=== PATIENT | female | born 1970 | race Caucasian/White ===

== ENCOUNTER 2017-09-09 06:45 | Day surgery (SDC) | payer OTHER ==
[~2017-09-09 06:45] MED LIST: BACL10 PO; CYCL10 PO; GABA300 PO; HYDACE5; HYDACE5 PO; IBUP800; NAPR500 PO; PARO20 PO; TRAZ50
== END 2017-09-09 11:33 | disposition home or self-care (01) ==
LOC: ORSCMMR 06:45
PROVIDERS: Surgery
PROC: 0HBU0ZX Excision of Left Breast, Open Approach, Diagnostic (ICD-10-PCS; principal; 2017-09-09 08:15)
DX: N60.12 Diffuse cystic mastopathy of left breast (principal); N63.21 Unspecified lump in the left breast, upper outer quadrant; N63.23 Unspecified lump in the left breast, lower outer quadrant; F17.210 Nicotine dependence, cigarettes, uncomplicated; Z79.899 Other long term (current) drug therapy
CPT/HCPCS: 88305; J1100; J1885; J2250; J2405; J7120

== ENCOUNTER → 2018-09-07 | Outpatient (CLI) | payer OTHER ==
[2018-09-08 14:07] LABS: HPV 16 Negative (Negative); HPV 18 Negative (Negative); HPV OTHER HR TYPES Negative (Negative)
== END ==
LOC: PLD 11:46 → LAB SHORT 11:46
PROVIDERS: Registered Nurse Community Health
DX: Z12.4 Encounter for screening for malignant neoplasm of cervix (principal); N89.8 Other specified noninflammatory disorders of vagina
CPT/HCPCS: 87070; 87205; 87624; 88305; G0123

== ENCOUNTER 2019-05-02 06:42 | Inpatient (IN) | payer OTHER ==
[~2019-05-02] VITALS: Ht 162.6 cm; Wt 55.1 kg
[2019-05-02] MEDS ORDERED: Bactrim Ds Tab1 EACH PO (07:33)
[2019-05-02] MEDS ORDERED: IBUP400 (07:34)
[2019-05-02 08:45] LABS: BASOPHILS ABSOLUTE AUTO 0.08 K/mm3 (0.00-0.23); BASOPHILS PERCENT AUTO 1 % (0-2); EOSINOPHILS ABSOLUTE AUTO 0.14 K/mm3 (0.00-0.68); EOSINOPHILS PERCENT AUTO 1 % (0-6); Hematocrit 36.9 % (33.0-51.0); Hemoglobin 12.2 g/dL (11.5-16.0); IMMATURE GRAN ABSOLUTE AUTO 0.06 K/mm3 (0.00-0.10); IMMATURE GRAN PERCENT AUTO 0 % (0-1); LYMPHOCYTES ABSOLUTE AUTO 1.78 K/mm3 (0.84-5.20); LYMPHOCYTES PERCENT AUTO 13 % (21-46); MONOCYTES ABSOLUTE AUTO 1.74 K/mm3 (0.16-1.47); MONOCYTES PERCENT AUTO 12 % (4-13); Mean Corpuscular HGB 29.9 pg (26.0-34.0); Mean Corpuscular HGB Conc 33.1 g/dL (31.5-36.5); Mean Corpuscular Volume 90 fL (80-100); Mean Platelet Volume 11.3 fL (9.1-12.4); NEUTROPHILS ABSOLUTE AUTO 10.38 K/mm3 (1.96-9.15); NEUTROPHILS PERCENT AUTO 73 % (41-73); Platelet Count 186 K/mm3 (150-400); RDW Coefficient Variation 12.7 % (11.7-14.2); Red Blood Cell Count 4.08 M/mm3 (3.80-5.20); White Blood Cell Count 14.18 K/mm3 (4.00-11.30)
[2019-05-02 09:04] LABS: Anion Gap 8 mmol/L (6-16); Blood Urea Nitrogen 15 mg/dL (8-24); Bun/Creatinine Ratio 19.4 (12.0-20.0); CO2, Blood 23 mmol/L (21-32); Calcium, Blood 8.4 mg/dL (8.5-10.1); Chloride, Blood 107 mmol/L (98-108); Creatinine, Blood 0.77 mg/dL (0.40-1.00); Glomerular Filtration Rate >60 (60-); Glucose, Blood 108 mg/dL (70-99); Potassium, Blood 3.6 mmol/L (3.5-5.5); Sodium, Blood 138 mmol/L (136-145)
[2019-05-02 10:59] LABS: International Normalized Ratio 1.04
[2019-05-02] MEDS ORDERED: MUPIROCIN15 GM TOP (13:02)
--- NOTE | 2019-05-02 15:34 | NUR ---
NEW ADMISSION. PER CLINICAL CORRDINATOR AND INSPECTOR AND UNLOADER, NOT TO ENTER ROOM TO GET ADMIT VITALS AT THIS TIME
--- NOTE | 2019-05-02 16:10 | NUR ---
PT REFUSING TO LISTEN TO INSTRUCTIONS. REFUSING TO WEAR GOWN. REQUESTING A COMPLAINT FORM. CHARGE NURSE NOTIFIED.
--- NOTE | 2019-05-02 16:12 | NUR ---
PT REFUSING TO ANSWER QUESTIONS, REFUSING TO WEAR HOSPITAL GOWN.
--- NOTE | 2019-05-02 16:40 | NUR ---
PT REQUESTING TO LEAVE AMA. FORMS SIGNED DR. SHERMAN AND JAN ESPARZA RN INFORMED.
--- NOTE | 2019-05-02 16:41 | NUR ---
PT EXPLAINED RISKS TO LEAVING VERBALIZED UNDERSTANDING. ENCOURAGED TO RETURN IF SYMPTOMS WORSEN.
== END 2019-05-02 16:45 | disposition left against medical advice (07) | DRG 872 ==
LOC: ER 06:42 → ERHOLD 11:41 → MEDS 15:00
PROVIDERS: Emergency Medicine; Nurse Practitioner Acute Care; ADMIT Internal Medicine
DX: A41.9 Sepsis, unspecified organism (principal); L03.115 Cellulitis of right lower limb; M50.30 Other cervical disc degeneration, unspecified cervical region; F17.210 Nicotine dependence, cigarettes, uncomplicated; Z88.0 Allergy status to penicillin; Z88.2 Allergy status to sulfonamides; Z53.29 Procedure and treatment not carried out because of patient's decision for other reasons
CPT/HCPCS: 36415; 73701; 80048; 83605; 85025; 85610; 85651; 86140; 87040; 96361; 96365-59; 96375-59; 99285-25; J0696; J2405; J3370; J7030; Q9967

== ENCOUNTER 2019-05-04 18:58 | Inpatient (IN) | payer OTHER ==
[~2019-05-04] VITALS: Ht 162.6 cm; Wt 59.6 kg
[~2019-05-04 18:58] MED LIST changes: +Bactrim Ds Tab1 EACH PO; +IBUP400; +MUPIROCIN15 GM TOP
[2019-05-04 20:10] LABS: BASOPHILS PERCENT AUTO 1 % (0-2); EOSINOPHILS ABSOLUTE AUTO 0.49 K/mm3 (0.00-0.68); EOSINOPHILS PERCENT AUTO 4 % (0-6); Hemoglobin 11.9 g/dL (11.5-16.0); IMMATURE GRAN ABSOLUTE AUTO 0.05 K/mm3 (0.00-0.10); IMMATURE GRAN PERCENT AUTO 0 % (0-1); LYMPHOCYTES ABSOLUTE AUTO 2.22 K/mm3 (0.84-5.20); LYMPHOCYTES PERCENT AUTO 18 % (21-46); MONOCYTES ABSOLUTE AUTO 1.37 K/mm3 (0.16-1.47); MONOCYTES PERCENT AUTO 11 % (4-13); Mean Corpuscular HGB 30.3 pg (26.0-34.0); Mean Corpuscular HGB Conc 32.2 g/dL (31.5-36.5); Mean Platelet Volume 10.3 fL (9.1-12.4); NEUTROPHILS ABSOLUTE AUTO 7.81 K/mm3 (1.96-9.15); NEUTROPHILS PERCENT AUTO 65 % (41-73); Platelet Count 243 K/mm3 (150-400); RDW Coefficient Variation 12.5 % (11.7-14.2); RDW Standard Deviation 43.9 fL (35.1-46.3); Red Blood Cell Count 3.93 M/mm3 (3.80-5.20); White Blood Cell Count 12.04 K/mm3 (4.00-11.30)
[2019-05-04 20:12] LABS: Mean Corpuscular Volume 94 fL (80-100)
[2019-05-04 20:28] LABS: Alanine Aminotransfer (ALT/SGP 57 U/L (12-78); Albumin, Blood 3.3 g/dL (3.4-5.0); Albumin/Globulin Ratio 0.8 (0.8-1.8); Alk Phos 108 U/L (50-136); Anion Gap 7 mmol/L (6-16); Aspartate Aminotrans (AST/SGOT 50 U/L (12-37); Bilirubin, Total 0.3 mg/dL (0.1-1.0); Blood Urea Nitrogen 17 mg/dL (8-24); Bun/Creatinine Ratio 21.5 (12.0-20.0); CO2, Blood 26 mmol/L (21-32); Calcium, Blood 8.9 mg/dL (8.5-10.1); Chloride, Blood 108 mmol/L (98-108); Creatinine, Blood 0.79 mg/dL (0.40-1.00); Globulin, Blood 4.2 g/dL (2.2-4.0); Glomerular Filtration Rate >60 (60-); Glucose, Blood 71 mg/dL (70-99); Potassium, Blood 4.1 mmol/L (3.5-5.5); Sodium, Blood 141 mmol/L (136-145); Total Protein, Blood 7.5 g/dL (6.4-8.2)
[2019-05-04] MEDS ORDERED: TRAM50 PO (22:11)
--- NOTE | 2019-05-04 23:18 | NUR ---
REFUSING LAB DRAWS PT REFUSING "ANY AND ALL" LAB DRAWS UNLESS WE CAN "USE IV" TO DRAW BLOOD. EDUCATED PT THAT IT IS NOT POSSIBLE TO DO THIS. PT ALSO EDUCATED ON IMPORTANCE OF LAB DRAWS AND BLOOD CULTURE. PT CONT TO REFUSES. NOTIFIED TO CASTRO, WHO SPOKE WITH DR CARPENTER. AWARE.
--- NOTE | 2019-05-05 00:45 | NUR ---
WOUND DRESSING CHANGE WOUND CLEANSED AND DRESSED WITH ABD PAD AND ZEUS WRAP. MEDICATED PT PRIOR WITH 25 MCY IV FENTANYL. TOLERATED WELL. SEE PHOTO DOCUMENTATION.
--- NOTE | 2019-05-05 05:17 | NUR ---
ADMISSION NOTE/SHIFT SUMMARY PT ARRIVED TO UNIT VIA W/C, INDEPENDENTLY AMBULATES TO BED W/O DIFFICULTY. PER PT, WOUND TO RLE STARTED A "KNICK" WHEN SHAVING "A FEW WEEKS AGO". SITE IS BEHIND R KNEE. OOZING MILKY, PURULENT, BLOODY DRAINAGE. THERE IS ONE MAIN OPEN AREA WITH SURROUNDING SMALLER OPEN AREAS. THE SITE IS RED, SWOLLEN, WARM TO TOUCH. AROUND THE AREA IS RED AND SWOLLEN. NO FOUL ODOR PRESENT. CLEANED AND DRESSED WOUND WITH ABD PAD AND ZEUS WRAP. PT TREATED FOR PAIN c 25 MCG IV FENTANYL PRN. PT REFUSED AM LABS, DR CARPENTER NOTIFIED. AFEBRILE, VSS. NS RUNNING @ 150 ML/HR X1 BAG ONLY. IV ZOSYN AND IV VANCO ADMINISTERED PER EMAR ORDERS. PT REFUSED PM LOVENOX INJECTION. PT IS IRRITABLE AND AGITATED WITH STAFF, CAN BE VERY DEMANDING WELL. NEEDS MET IN A TIMELY MANNER. WILL CONT TO MONITOR AND PROVIDE CARE UNTIL PRESUMED BY ONCOMING RN.
--- NOTE | 2019-05-05 17:56 | NUR ---
SHIFT SUMMARY NO ACUTE CHANGES. PATIENT MEDICATED X 2 FOR PAIN TODAY. DENIES NAUSEA AND SHORTNESS OF BREATH. PATIENT UP INDEPENDENT IN THE ROOM, USES WHEELCHAIR TO GO OUT TO SMOKE. PATIENT HAS NOT GONE OUT YET TODAY. PATIENT NAPPING MOST OF SHIFT. PATIENT STATED SHE WOULD PREFER WOUND CARE AFTER HER SHOWER THIS EVENING. CALL LIGHT IN REACH.
--- NOTE | 2019-05-06 02:11 | NUR ---
DRESSING CHANGE DRESSING CHANGE TO RLE BEHIND R KNEE COMPLETE. MEDICATED WITH 25 MCG FENTANYL BEFORE. SITE LOOKS LIKE A LARGE BLISTER WITH SEVERAL SMALL BLISTERS. RED AND WARM TO TOUCH. OOZING MILKY FLUID. ABD PAD AND ZEUS WRAP APPLIED. PT JOANA WELL.
--- NOTE | 2019-05-06 02:12 | NUR ---
REQUESTING AM LABS PT IS NOW REQUESTING AM LABS THAT SHE REFUSED YESTERDAY (CBC, CMP, AND BLOOD CX). NOTIFIED DR CARPENTER. ORDERED AM LABS.
[2019-05-06 04:45] LABS: BASOPHILS ABSOLUTE AUTO 0.07 K/mm3 (0.00-0.23); BASOPHILS PERCENT AUTO 1 % (0-2); EOSINOPHILS ABSOLUTE AUTO 0.51 K/mm3 (0.00-0.68); EOSINOPHILS PERCENT AUTO 6 % (0-6); Hematocrit 35.5 % (33.0-51.0); Hemoglobin 11.5 g/dL (11.5-16.0); IMMATURE GRAN ABSOLUTE AUTO 0.06 K/mm3 (0.00-0.10); IMMATURE GRAN PERCENT AUTO 1 % (0-1); LYMPHOCYTES PERCENT AUTO 25 % (21-46); MONOCYTES ABSOLUTE AUTO 0.84 K/mm3 (0.16-1.47); MONOCYTES PERCENT AUTO 10 % (4-13); Mean Corpuscular HGB 30.3 pg (26.0-34.0); Mean Corpuscular HGB Conc 32.4 g/dL (31.5-36.5); Mean Corpuscular Volume 94 fL (80-100); Mean Platelet Volume 10.4 fL (9.1-12.4); NEUTROPHILS ABSOLUTE AUTO 4.98 K/mm3 (1.96-9.15); NEUTROPHILS PERCENT AUTO 58 % (41-73); Platelet Count 277 K/mm3 (150-400); RDW Coefficient Variation 12.6 % (11.7-14.2); RDW Standard Deviation 43.9 fL (35.1-46.3); Red Blood Cell Count 3.79 M/mm3 (3.80-5.20); White Blood Cell Count 8.56 K/mm3 (4.00-11.30)
[2019-05-06 05:06] LABS: Vancomycin, Trough 9.9 ug/mL (5.0-10.0)
[2019-05-06 05:08] LABS: Alanine Aminotransfer (ALT/SGP 62 U/L (12-78); Albumin, Blood 2.8 g/dL (3.4-5.0); Albumin/Globulin Ratio 0.7 (0.8-1.8); Alk Phos 115 U/L (50-136); Anion Gap 7 mmol/L (6-16); Aspartate Aminotrans (AST/SGOT 39 U/L (12-37); Bilirubin, Total 0.2 mg/dL (0.1-1.0); Blood Urea Nitrogen 11 mg/dL (8-24); Bun/Creatinine Ratio 12.7 (12.0-20.0); CO2, Blood 27 mmol/L (21-32); Calcium, Blood 8.9 mg/dL (8.5-10.1); Chloride, Blood 108 mmol/L (98-108); Creatinine, Blood 0.87 mg/dL (0.40-1.00); Globulin, Blood 3.9 g/dL (2.2-4.0); Glomerular Filtration Rate >60 (60-); Glucose, Blood 110 mg/dL (70-99); Potassium, Blood 3.9 mmol/L (3.5-5.5); Sodium, Blood 142 mmol/L (136-145); Total Protein, Blood 6.7 g/dL (6.4-8.2)
--- NOTE | 2019-05-06 05:09 | NUR ---
SHIFT SUMMARY PT MORE COOPERATIVE TONIGHT. REQUESTS TO HAVE LAB WORK DONE THAT SHE REFUSED YESTERDAY. NOTIFIED DR CARPENTER; AM LAB WORK ORDERED; SEE EMR. PT MEDICATED 3X WITH 25 MCG IV FENTANYL FOR PAIN TO RLE. DRESSING CHANGE COMPLETE, SEE PRIOR NOTE. OUT TO SMOKE SEVERAL TIMES. WILL CONT TO MONITOR AND PROVIDE CARE UNTIL PRESUMED BY ONCOMING RN.
[2019-05-06] MEDS ORDERED: ACET325 PO (11:51)
[2019-05-06] MEDS ORDERED: CEPH500 PO (11:52)
[2019-05-06] MEDS ORDERED: Florastor250 MG PO (11:53)
--- NOTE | 2019-05-06 19:17 | NUR ---
SHIFT SUMMARY NO ACUTE CHANGES. PATIENT DENIES NAUSEA, PAIN, AND SHORTNESS OF BREATH. PATIENT UP INDEPENDENT IN ROOM, USES WHEELCHAIR TO GO OUTSIDE TO SMOKE. PATIENT'S DISCHARGE HELD TODAY. PATIENT NAPPED MOST OF DAY. CALL LIGHT IN REACH.
--- NOTE | 2019-05-07 04:27 | NUR ---
REFUSED LAB DRAW UNTIL "A LITTLE LATER".
--- NOTE | 2019-05-07 05:02 | NUR ---
SHIFT SUMMARY PT WITH CELLULITIS BEHIND R KNEE. ABD PAD AND ZEUS WRAP APPEAR C/D/I, PT DOES NOT ALLOW DRESSING CHANGE TONIGHT. DOES NOT REPORT ANY PAIN TONIGHT. REFUSING LABS THIS MORNING UNTIL "A LITTLE LATER". PT IS VERY DROWSY AND SLEPT THROUGH THE NIGHT, WENT OUTSIDE WITH VISITORS TWICE. WILL CONT TO MONITOR AND PROVIDE CARE UNTIL PRESUMED BY ONCOMING RN.
--- NOTE | 2019-05-07 14:18 | NUR ---
PT HAS REFUSED LAB DRAWS ALL DAY X3 ATTEMPTS. ISTRATE NOTIFIED OF REFUSAL OF CARE AND ASSESSMENT OF CELLULITIS. PT TO CONTINUE WITH ABX AND BE D/C'D TOMORROW.
--- NOTE | 2019-05-07 16:01 | NUR ---
SHIFT SUMMARY PT SLEEPING MOST OF THE DAY. WAKES OCCASSIONALLY TO EAT JUNK FOOD IN RM AND ORDER MORE ICE FOR HER SNACKS. PT VERY RUDE AND DEMANDING, BUT REFUSES CARE NEEDED. ISTRATE NOTIFIED OF PT'S REFUSSAL. PT TO RECEIVE IV ABX TODAY AND THEN TO D/C TOMORROW. INDEPENDANT IN . HAS NOT C/O PAIN OR REQUESTED PAIN MEDICATION. HAS NOT REQUESTED TO GO OUT TO [facility] TO PRESENT. DEMANDED [facility] FOR A SHOWER SEVERAL HOURS AGO AND IS JUST NOW GOING TO SHOWER. CALL LT IN REACH. ABLE TO MAKE NEEDS KNOWN. S/O ASLEEP IN , AT BS DURING SHIFT REPORT.
--- NOTE | 2019-05-07 19:26 | NUR ---
05/07/191919 PT UP IN W/C TO SMOKE. DAUGHTER TAKING HER OUT.
--- NOTE | 2019-05-08 00:35 | NUR ---
05/08/19 0015 WATCHING TV IN BED. HAD TAKEN A SHOWER EARLIER AND REFUASED RN TO CHANGE DRESSINGS. JONAH RN GAVE HER SUPPLIES AFTER PHOTO WAS TAKEN OF WOUNDS TO RT KNEE/LEG AFTER SHOWER. PT HAD REFUSED TO HAVE IV RESTARTED WHEN INFILTRATED AT BEGINNING OF SHIFT.
--- NOTE | 2019-05-08 07:24 | NUR ---
05/08/19 0530 VITALS STABLE. SLEPT WELL LAST NIGHT. TAKING ORAL FOOD/FLUIDS WELL. SEE PREVIOUS NOTES REGARDING IV AND MEDS.
[2019-05-08] MEDS ORDERED: HYDR1TAB94 PO (12:13)
[2019-05-08] MEDS ORDERED: CLIN300 PO (12:21)
--- NOTE | 2019-05-08 14:02 | NUR ---
SHIFT SUMMARY PT UP IN W/C DURING SHIFT REPORT TO [facility]. PT LATER RETURNED TO . REQUESTED [facility] TO TAKE A SHOWER. WAS AGREEABLE TO ALLOW PICTURE OF WOUND THIS TIME. PT HAS REFUSED ASSESSMENTS OF RLE WELL PICTURES AND DRSG CHANGES. PT INSISTED ON DOING HER OWN DRSG CHANGE; SUPPLIES GIVEN. PT LOST IV ACCESS AT THE END OF DAY SHIFT LAST NIGHT AND REFUSED TO ALLOW ANOTHER IV STARTED FOR IV ABX. DR NOTIFIED BY NOC RN. PO ABX STARTED. DR EMEYR UPDATED BEFORE GOING IN TO SEE PT. D/C ORDERS PLACED AFTER SEEING PT. PICTURES SHOWN TO DR EMERY OF RLE WOUND; DR EMERY HAD NEVER BEEN ABLE TO ASSESS THE WOUND PT HAS CONSISTENTLY REFUSED. PT REFUSED MOST CARE OFFERED; PICKED AND CHOOSES WHAT CARE SHE WILL ACCEPT. D/C INSTRUCTIONS DISCUSSED WITH PT AND GIVEN IN PACKET; VERBALIZED UNDERSTANDING. MEDICATIONS FAXED TO [facility], PER PT REQUEST. HARD COPY OF SCRIPT GIVEN FOR [facility]; COPY IN CHART. S/O TOOK PT OUT IN W/C; DECLINED NEEDING ANY ASSIST.
== END 2019-05-08 13:20 | disposition home or self-care (01) | DRG 872 ==
LOC: ER 18:58 → MEDS 21:31 → ENPENDDIS 05-06 11:41 → MEDS 05-08 13:20
PROVIDERS: Physician Assistant; ADMIT Hospitalist
DX: A41.9 Sepsis, unspecified organism (principal); L03.115 Cellulitis of right lower limb; D68.51 Activated protein C resistance; L02.415 Cutaneous abscess of right lower limb; F17.210 Nicotine dependence, cigarettes, uncomplicated; M54.9 Dorsalgia, unspecified; G89.29 Other chronic pain; Z91.19 Patient's noncompliance with other medical treatment and regimen
CPT/HCPCS: 36415; 80053; 80202; 83605; 85025; 87040; 96365; 99284-25; A9270; J0696; J3010; J3370; J7030; J7050; J7120

== ENCOUNTER 2019-05-13 19:37 | Emergency (ER) | payer OTHER ==
[~2019-05-13] VITALS: Ht 172.7 cm; Wt 61.2 kg
[~2019-05-13 19:37] MED LIST changes: +ACET325 PO; +CEPH500 PO; +CLIN300 PO; +Florastor250 MG PO; +HYDR1TAB94 PO; +TRAM50 PO
[2019-05-13] MEDS ORDERED: KETO10 PO (20:32)
== END 2019-05-13 20:42 | disposition home or self-care (01) ==
LOC: ER 19:37
DX: L03.115 Cellulitis of right lower limb (principal); F17.200 Nicotine dependence, unspecified, uncomplicated; L97.119 Non-pressure chronic ulcer of right thigh with unspecified severity; Z88.0 Allergy status to penicillin; Z91.018 Allergy to other foods; Z91.02 Food additives allergy status; Z79.899 Other long term (current) drug therapy
CPT/HCPCS: 99283

== ENCOUNTER → 2019-05-21 | Outpatient (CLI) | payer OTHER ==
[~2019-05-21] MED LIST changes: +KETO10 PO
== END | disposition home or self-care (01) ==
LOC: LAB 15:40 → LAB SHORT 15:40
DX: L03.119 Cellulitis of unspecified part of limb (principal); L02.91 Cutaneous abscess, unspecified
CPT/HCPCS: 87070; 87075; 87205

== ENCOUNTER 2019-06-04 13:34 | Day surgery (SDC) | payer OTHER | END 2019-06-04 22:41 | disposition home or self-care (01) | LOC: WOUND 13:34 | DX: L97.811 Non-pressure chronic ulcer of other part of right lower leg limited to breakdown of skin (principal); F17.210 Nicotine dependence, cigarettes, uncomplicated; Z88.0 Allergy status to penicillin | CPT/HCPCS: G0463 ==

== ENCOUNTER 2019-06-11 13:48 | Day surgery (SDC) | payer OTHER | END 2019-06-11 22:54 | disposition home or self-care (01) | LOC: WOUND 13:48 | DX: L97.111 Non-pressure chronic ulcer of right thigh limited to breakdown of skin (principal); F17.200 Nicotine dependence, unspecified, uncomplicated | CPT/HCPCS: G0463 ==

== ENCOUNTER 2019-07-03 15:13 | Day surgery (SDC) | payer OTHER | END 2019-07-03 23:03 | disposition home or self-care (01) | LOC: WOUND 15:13 | DX: L97.111 Non-pressure chronic ulcer of right thigh limited to breakdown of skin (principal); M25.661 Stiffness of right knee, not elsewhere classified; F17.200 Nicotine dependence, unspecified, uncomplicated; D68.51 Activated protein C resistance | CPT/HCPCS: G0463 ==

== ENCOUNTER → 2019-11-26 | Outpatient (CLI) | payer OTHER ==
[2019-11-27 14:14] LABS: Candida species (DNA Probe) Negative (NEGATIVE); G. vaginalis (DNA Probe) Negative (NEGATIVE); T. vaginalis (DNA Probe) Positive (NEGATIVE)
== END | disposition home or self-care (01) ==
LOC: LAB 19:15 → LAB SHORT 19:15
PROVIDERS: Nurse Practitioner
DX: N89.8 Other specified noninflammatory disorders of vagina (principal)
CPT/HCPCS: 87070; 87205; 87480; 87510; 87660

== ENCOUNTER → 2022-03-26 | Outpatient (CLI) | payer OTHER | END | disposition home or self-care (01) | LOC: LAB 18:50 → LAB SHORT 18:50 | DX: R30.0 Dysuria (principal) | CPT/HCPCS: 87077; 87086; 87186 ==

== ENCOUNTER → 2022-10-19 | Outpatient (CLI) | payer OTHER | END | disposition home or self-care (01) | LOC: LAB 17:08 → LAB SHORT 17:08 | DX: N39.0 Urinary tract infection, site not specified (principal) | CPT/HCPCS: 87077; 87086; 87147; 87186 ==

== ENCOUNTER → 2025-03-19 | Outpatient (CLI) | payer OTHER | LOC: LAB 13:53 → LAB SHORT 13:53 | DX: M79.609 Pain in unspecified limb (principal) | CPT/HCPCS: 85379 ==

== ENCOUNTER 2025-04-05 23:17 | Emergency (ER) | payer OTHER ==
[~2025-04-05] VITALS: Ht 162.6 cm; Wt 60.3 kg
[2025-04-05 23:38] VITALS: BP 142/90
== END 2025-04-06 01:14 | disposition home or self-care (01) ==
LOC: ER 23:17
DX: D21.9 Benign neoplasm of connective and other soft tissue, unspecified (principal); F17.200 Nicotine dependence, unspecified, uncomplicated; Z79.899 Other long term (current) drug therapy; Z91.018 Allergy to other foods; Z88.0 Allergy status to penicillin
CPT/HCPCS: 99282